=== PATIENT | male | born 1990 | race Caucasian/White ===

== ENCOUNTER 2019-01-07 21:33 | Emergency (ER) | payer MEDICAID ==
[~2019-01-07] VITALS: Ht 170.2 cm; Wt 75.0 kg
[2019-01-07] MEDS ORDERED: ONDANSETRON HCL 4MG/2ML INJ IV STA (21:57)
[2019-01-07] MEDS ORDERED: SODIUM CHLORIDE 0.9% 1,000 ML IV ONE (21:57)
[2019-01-07] MEDS ORDERED: MORPHINE SULFATE 4 MG/ML CPJ (NOT FOR IM USE) IV STA (21:57)
[2019-01-07] MEDS ORDERED: ONDANSETRON HCL 4MG/2ML INJ IV ONE (23:45)
[2019-01-07] MEDS ORDERED: MORPHINE SULFATE 10 MG/ML CPJ IV ONE (23:45)
[2019-01-08 01:12] VITALS: BP 126/82
== END 2019-01-08 01:15 | disposition home or self-care (01) ==
LOC: ER 21:33
DX: S82.254A Nondisplaced comminuted fracture of shaft of right tibia, initial encounter for closed fracture (principal); W18.39XA Other fall on same level, initial encounter; Y93.66 Activity, soccer; Y92.89 Other specified places as the place of occurrence of the external cause; Y99.8 Other external cause status
CPT/HCPCS: 29505; 73590; 73610; 96374; 96375; 96376; 99283; J2270; J2405; J7030